=== PATIENT | male | born 1965 | race Caucasian/White ===

== ENCOUNTER 2021-05-04 12:44 | Emergency (ER) | payer OTHER ==
[2021-05-04 12:56] VITALS: BP 130/69; PULSE 60; TEMP 98; BMI 25.0
[2021-05-04] MEDS ORDERED: IBUPROFEN 600 MG TABLET (FP) PO ONE ×2 (13:19→13:32)
== END 2021-05-04 14:19 | disposition home or self-care (01) ==
LOC: FER 12:44
DX: S89.91XA Unspecified injury of right lower leg, initial encounter (principal); W22.8XXA Striking against or struck by other objects, initial encounter
CPT/HCPCS: 73562-TC-RT-FY; 99283-25